=== PATIENT | male | born 1970 | race Caucasian/White ===

== ENCOUNTER → 2021-09-11 14:22 | Outpatient (CLI) | payer BC, SELFPAY ==
--- NOTE | ~2021-09-11 | CT_ITS ---
EXAMINATION: CT lung screening DATE: 09/11/2021 14:44 INDICATION: Personal history of nicotine dependence TECHNIQUE: Computed tomography (CT) of the chest was performed without intravenous contrast. Addition al 3D reconstructions utilizing coronal maximum intensity projection (MIP) were performed. Automated exposure control and iterative reconstruction technique were employed. The dose-length product was 37 8.19 mGy-cm. COMPARISON: None FINDINGS: 4 mm right lower lobe nodule. 3 mm right upper lobe nodule. 1.6 x 1.3 x 1.0 cm subselected nodule at the lingula with largest solid component measuring 4-5 mm in maximal dimension. Small region of tree- in-bud opacity with <2 mm nodules at the lateral basilar left lower lobe. Heart size is normal. Ather osclerotic coronary artery calcification and possible coronary artery stenting. No pericardial or ple ural effusion. Thoracic aorta is normal in caliber. No pathologically enlarged thoracic lymphadenopat hy. Small sliding-type hiatal hernia. Diffuse hepatic steatosis. Chronic mild anterior wedging at T10 -T12. IMPRESSION: 1. Lung-RADS category 3: Probably benign. One-2% chance of malignancy, Further evaluation is recommen ded with noncontrast low-dose chest CT in 6 months. 2. Small sliding-type hiatal hernia. Reviewed, dictated and finalized at location B. IMPRESSION: 1. Lung-RADS category 3: Probably benign. One-2% chance of malignancy, Further evaluation is recommended with noncontrast low-dose chest CT in 6 months. 2. Small sliding-type hiatal hernia.
== END ==
PROVIDERS: PCP Internal Medicine; Visit Provider Internal Medicine
DX: Z12.2 Encounter for screening for malignant neoplasm of respiratory organs (principal); Z87.891 Personal history of nicotine dependence; R91.8 Other nonspecific abnormal finding of lung field; K44.9 Diaphragmatic hernia without obstruction or gangrene
CPT/HCPCS: 71271

== ENCOUNTER → 2022-04-23 13:19 | Outpatient (CLI) | payer BC, SELFPAY ==
--- NOTE | ~2022-04-23 | CT_ITS ---
EXAMINATION:CT diagnostic chest wo con DATE: 04/23/2022 13:34 INDICATION: Multiple nodules of lung. TECHNIQUE: Computed tomography (CT) of the chest was performed without intravenous contrast. Automate d exposure control and iterative reconstruction technique were employed. The dose-length product (DLP ) was 414.25 mGy-cm. COMPARISON: Chest CT 09/11/2021 FINDINGS: There is a stable 5 mm nodule in right lower lobe. There is a stable 5 mm nodule in right l ower lobe. There is 11 mm part solid nodule in left upper lobe, stable from 09/11/2021. There is a 2 m m nodule in right upper lobe. No pleural effusion. The heart size is normal. There are coronary arter y calcifications. No pericardial effusion. There is a small sliding hiatal hernia. There is mild thor acic spondylosis. There is mild chronic anterior wedging of T10-T12 vertebral bodies. IMPRESSION: 1. Lung-RADS category 2: Benign appearance or behavior. Continue annual screening with noncontrast lo w-dose chest CT in 12 months. Reviewed, dictated and finalized at location A. 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 Lung-RADS category 2: Benign appearance or behavior. Continue annual screeni ng with noncontrast low-dose chest CT in 12 months.
== END ==
PROVIDERS: PCP Internal Medicine; Visit Provider Internal Medicine
DX: R91.8 Other nonspecific abnormal finding of lung field (principal)
CPT/HCPCS: 71250

== ENCOUNTER 2023-09-19 09:58 | Outpatient (CLI) | payer OTHER, SELFPAY ==
--- NOTE | ~2023-09-19 | MR_ITS ---
EXAMINATION: MR lumbar spine wo con DATE: 09/19/2023 10:23 INDICATION: Low back pain TECHNIQUE: Magnetic resonance imaging (MRI) of the lumbar spine was performed without intravenous con trast. Sequences included sagittal T2-weighted FSE, sagittal T2-weighted FS FSE, sagittal T1-weighted FSE, and axial T2-weighted FSE. COMPARISON: None FINDINGS: Alignment is normal. 20% anterior vertebral body height loss at T11, 10% anterior vertebral body heig ht loss at T12. Lumbar vertebral body heights are normal. Normal marrow signal. This desiccation wit h mild disc height loss at L1-L2 and L4-L5 with moderate disc height loss at L5-S1. The conus medulla ris terminates at L1-L2. There is normal signal in the caudal spinal cord. Paravertebral soft tissues are unremarkable. The following disc levels are specifically discussed: T12-L1: The disc does not extend beyond the endplate margin. There is moderate to severe bilateral fa cet joint osteoarthritis. There is no neural foraminal stenosis. There is no central canal stenosis. L1-L2: Disc is mildly bulging. There is mild right and moderate left facet joint osteoarthritis. Ther e is mild bilateral neural foraminal stenosis. There is normal central canal stenosis. L2-L3: The disc does not extend beyond the endplate margin. There is mild to moderate bilateral facet joint osteoarthritis. There is mild bilateral neural foraminal stenosis. There is no central canal s tenosis. L3-L4: The disc does not extend beyond the endplate margin. There is mild left and moderate right fac et joint osteoarthritis. There is mild bilateral neural foraminal stenosis. There is no central canal stenosis. L4-L5: Disc is bulging with annular fissure. There is mild left and moderate to severe right facet brandon int osteoarthritis. There is moderate left and mild to moderate right neural foraminal stenosis. Ther e is mild central canal stenosis with narrowing of the left and right lateral recesses. L5-S1: Disc is bulging with annular fissure and superimposed left foraminal zone disc protrusion. The re is mild right and moderate left facet joint osteoarthritis. There is moderate left and mild to mod erate right neural foraminal stenosis. There is mild central canal stenosis with narrowing of the lat eral recesses, left greater than right. IMPRESSION: 1. Mild to moderate lower lumbar predominant spondylosis. Reviewed, dictated and finalized at location A.
== END 2023-09-19 09:59 ==
PROVIDERS: PCP Internal Medicine; Visit Provider Internal Medicine
DX: M43.06 Spondylolysis, lumbar region (principal)
CPT/HCPCS: 72148

== ENCOUNTER 2024-02-10 15:27 | Outpatient (CLI) | payer OTHER, SELFPAY ==
--- NOTE | ~2024-02-10 | CT_ITS ---
EXAMINATION:CT lung screening DATE: 02/10/2024 15:47 INDICATION: Personal history of tobacco dependence. 72 pack year history. TECHNIQUE: Computed tomography (CT) of the chest was performed without intravenous contrast. Automate d exposure control and iterative reconstruction technique were employed. The dose-length product (DLP ) was 366.16 mGy-cm. COMPARISON: Chest CT 04/23/2022, 09/11/21 FINDINGS: There is mild emphysema. There is mild atelectasis bilaterally. There is an 11 mm part adam d nodule with 7 mm solid component in left upper lobe, stable from 09/11/21. There are two 5 mm nodule s in right lower lobe, stable from 09/11/21. No pleural effusion. The heart size is normal. There are coronary artery calcifications. No pericardial effusion. There is mild bilateral gynecomastia. There is a small sliding hiatal hernia. There is diffuse hepatic steatosis. There is mild thoracic spondylo sis. There is mild chronic anterior wedging of T10-L1 vertebral bodies. IMPRESSION: 1. Lung-RADS category 2: Benign appearance or behavior. Continue annual screening with noncontrast lo w-dose chest CT in 12 months. Reviewed, dictated and finalized at location A. TAKER IMPRESSION: 1. Lung-RADS category 2: Benign appearance or behavior. Continue annual screeni ng with noncontrast low-dose chest CT in 12 months.
== END 2024-02-10 15:28 | disposition home or self-care (01) ==
LOC: MICIMG 15:28
PROVIDERS: PCP Internal Medicine; Visit Provider Internal Medicine
DX: Z12.2 Encounter for screening for malignant neoplasm of respiratory organs (principal); Z87.891 Personal history of nicotine dependence
CPT/HCPCS: 71271

== ENCOUNTER 2024-09-27 14:39 | Outpatient (CLI) | payer OTHER, SELFPAY ==
--- NOTE | ~2024-09-27 | US_ITS ---
EXAMINATION: US venous doppler LE RT DATE: 09/27/2024 14:58 INDICATION: Redness and swelling within the right lower extremity TECHNIQUE: Grayscale ultrasound images without and with compression and Doppler ultrasound images of the right lower extremity veins were obtained. COMPARISON: None. FINDINGS: The visualized portions of right common femoral vein, profunda (deep) femoral vein, femoral vein, pop liteal vein, peroneal veins and posterior tibial veins are patent. Noncompressibility and absence of flow within the greater saphenous vein from the level of the calf, extending centrally, nearly to its confluence with the common femoral vein. Thrombus is visualized 3 mm from the common femoral vein. IMPRESSION: No deep venous thrombosis on the current examination. Greater saphenous vein thrombosis, visualized 3 mm from the common femoral vein confluence. Given that thrombus is visualized less than 1 cm from the saphenofemoral junction, aggressive treatme nt is recommended. Every effort will be made to reach the patient's referring clinician (Dr. Ryan). Once contact is made, an addendum will be performed. Reviewed, dictated and finalized at location A. IMPRESSION: No deep venous thrombosis on the current examination. Greater saphenous vein thrombosis, visualized 3 mm from the common femoral vein confluence. Given that thrombus is visualized less than 1 cm from the saphenofemoral juncti on, aggressive treatment is recommended. Every effort will be made to reach the patient's referring clinician (Dr. Ryan ). Once contact is made, an addendum will be performed.
== END 2024-09-27 14:40 | disposition home or self-care (01) ==
PROVIDERS: PCP Internal Medicine; Visit Provider Internal Medicine
DX: M79.89 Other specified soft tissue disorders (principal); R23.8 Other skin changes
CPT/HCPCS: 93971